=== PATIENT | male | born 1965 | race Two or more races ===

== ENCOUNTER 2017-11-08 10:09 | Emergency (ER) | payer BC ==
[~2017-11-08] VITALS: Ht 175.3 cm; Wt 113.4 kg
[2017-11-08 10:16] VITALS: Ht 175.3 cm; Wt 113.4 kg
[2017-11-08 10:48] LABS: BASOPHIL % 0.3 % (0-2); PLATELET COUNT 252 x10^3mcL (130-400); RED CELL DISTRIBUTION WIDTH 13.3 % (11.5-14.5)
[2017-11-08 10:53] LABS: CALCIUM 8.1 mg/dL (8.5-10.1); CARBON DIOXIDE 27.9 mmol/L (21-32); CHLORIDE SERUM 106 mmol/L (98-107); GFR1 > 60 mL/min; GLUCOSE SERUM 133 mg/dL (74-106); SODIUM SERUM 143 mmol/L (136-145)
[2017-11-08 10:57] LABS: ALBUMIN 3.5 g/dL (3.4-5.0); ALKALINE PHOSPHATASE 89 U/L (46-116); ALT/SGPT 30 U/L (16-63); AST/SGOT 22 U/L (15-37); BILIRUBIN TOTAL 0.4 mg/dL (0.20-1.00); HDL CHOLESTEROL 40 mg/dL (40-60); LIPASE 76 IU/L (73-393); TOTAL PROTEIN, SERUM 6.7 g/dL (6.4-8.2); TRIGLYCERIDES 196 mg/dL (<150)
[2017-11-08 10:58] LABS: CHOLESTEROL 215 mg/dL (<200); CHOLESTEROL/HDL RATIO 5.4
[2017-11-08 11:10] LABS: FREE T4 0.99 ng/dL (0.76-1.46); FREE THYROXINE INDEX 2.9 ug/dL (1.4-4.5); T4(THYROXINE) 8.8 ug/dL (4.7-13.3)
[2017-11-08 11:56] LABS: T3 TOTAL 1.22 ng/mL
[2017-11-08 15:02] LABS: UA SPECIFIC GRAVITY >=1.030 (1.005-1.035); microscopic required? YES; urine erythrocyte 3+ (NEGATIVE)
[2017-11-08 15:07] VITALS: BP 154/95
== END 2017-11-08 15:07 | disposition home or self-care (01) ==
LOC: ED 10:09
PROVIDERS: Specialist
DX: N23 Unspecified renal colic (principal)
CPT/HCPCS: 83880; 84439; J1885; J2270; J2405; J3010; J7030; Q0092